=== PATIENT | male | born 1945 | race Caucasian/White ===

== ENCOUNTER → 2024-02-28 15:47 | Outpatient (CLI) | payer MEDICARE, OTHER, SELFPAY ==
--- NOTE | 2024-02-28 15:51 | DI.MRI.S_ITS ---
PROCEDURE: MR SHOULDER LT WO CON INDICATIONS: PAIN IN LEFT SHOULDER TECHNIQUE: Noncontrast oblique coronal T2 fast spin echo with fat saturation, oblique sagittal T1 spin echo and T2 fast spin echo with fat saturation, axial T1 spin echo and T2 fast spin echo with fat saturation through the shoulder. COMPARISON: None. FINDINGS: Image quality: Excellent. Rotator cuff: Low-grade articular and bursal surface partial thickness tear involving distal supraspinatus at its insertion on the humeral head extending to musculotendinous junction.. Distal infraspinatus tendinosis is seen at its insertion on the humeral head. Distal subscapularis tendinosis is also noted. No full-thickness rotator cuff tendon rupture. Sagittal images demonstrate no significant rotator cuff muscle atrophy. Bones and bursae: No bone marrow contusions or fractures. Moderate acromioclavicular joint osteoarthritic changes are seen with joint space narrowing and downward osteophyte formation depressing the musculotendinous junction of supraspinatus. Type 2 acromion, without an os acromiale. Moderate glenohumeral joint osteoarthritic changes also seen with joint space narrowing, subchondral sclerosis and marginal osteophyte formation. Small amount of subacromial subdeltoid bursal fluid is seen, no loose bodies. Capsule and soft tissues: Fraying of superior anterior glenoid labrum with T2 hyperintense signal suggestive of superior anterior labral tear. The long head of the biceps tendon demonstrates normal location and morphology. The rotator interval appears normal, without fibrosis. The coracohumeral ligament is normal in thickness. IMPRESSION: 1. Low-grade articular and bursal surface partial thickness tear involving distal supraspinatus extending to musculotendinous junction. Distal infraspinatus and subscapularis tendinosis. No full-thickness rotator cuff tendon rupture. 2. Moderate acromioclavicular joint and glenohumeral joint osteoarthritis. No fracture or dislocation. Small amount of subacromial subdeltoid bursal fluid. No loose bodies. 3. Suggestion of superior anterior left glenoid labral tear. Dictated by: Bruce Friend M.D. on 02/29/2024 at 10:50 Approved by: Bruce Friend M.D. on 02/29/2024 at 11:01
== END ==
PROVIDERS: Referring Provider Orthopaedic Surgery; Visit Provider Orthopaedic Surgery
DX: M75.112 Incomplete rotator cuff tear or rupture of left shoulder, not specified as traumatic (principal); M19.012 Primary osteoarthritis, left shoulder; M25.512 Pain in left shoulder
CPT/HCPCS: 73221

== ENCOUNTER → 2024-03-07 13:48 | Outpatient (CLI) | payer MEDICARE, OTHER, SELFPAY ==
--- NOTE | 2024-03-07 13:53 | EKG_ITS ---
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
[2024-03-07 14:43] LABS: Add Manual Diff / Slide Review NO; Basophils Absolute Auto 100 /uL (0-100); Basophils Percent Auto 0.8 % (0-2); Eosinophils Absolute Auto 100 /uL (0-450); Eosinophils Percent Auto 1.1 % (2-4); Hematocrit 45.4 % (41-53); Hemoglobin 15.5 g/dL (13.5-17.5); Lymphocytes Absolute Auto 1800 /uL (1100-4500); Mean Corpuscular HGB Conc 34.2 % (30-36); Mean Corpuscular Hemoglobin 32.5 PG (26-34); Mean Corpuscular Volume 95.2 fL (80-100); Monocytes Absolute Auto 700 /uL (0-900); Monocytes Percent Auto 7.7 % (3-14); Neutrophils Absolute Auto 6000 /uL (1500-7000); Neutrophils Percent Auto 69.4 % (50-75); Platelet Count 192 X10^3/uL (150-400); Red Blood Cell Count 4.77 X10^6/uL (4.5-5.9); Red Cell Distribution Width 13.6 % (11.6-14.8); White Blood Cell Count 8.6 X10^3/uL (4.5-11.0)
[2024-03-07 15:01] LABS: BUN Creatinine Ratio 23.4 (6-22); Blood Urea Nitrogen 26 mg/dL (9-20); Calcium 9.3 mg/dL (8.4-10.2); Carbon Dioxide 25 mmol/L (22-32); Chloride 106 mmol/L (98-107); Estimated Glomerular Filt Rate > 60 mL/min (>60); Glucose 95 mg/dL (80-110); HEMOLYSIS 25 (0-50); Potassium 4.6 mmol/L (3.4-5.1); Sodium 139 mmol/L (137-145)
[2024-03-07 15:46] LABS: Appearance Urine UA CLEAR; Bilirubin Urine UA NEGATIVE (NEGATIVE); Color Urine UA YELLOW; Glucose Urine UA NEGATIVE (Negative); Ketones Urine UA NEGATIVE (NEGATIVE); Leukocyte Esterase Urine UA TRACE (NEGATIVE); Nitrite Urine UA NEGATIVE (Negative); Occult Blood Urine UA NEGATIVE (Negative); Protein Urine UA NEGATIVE (Negative); Specific Gravity Urine UA 1.025 (1.000-1.035); Urobilinogen Urine UA 0.2 E.U./dL (0.2); pH Urine UA 5.5 (4.5-8.0)
[2024-03-07 15:55] LABS: RBC Urine None Seen (0-5/HPF); Urine Volume 10mL (spun)
[2024-03-07 15:56] LABS: Bacteria Urine Few (2-10); Culture Indicated Urine Specimen Cultured; Squamous Epithelial Cell Urine None Seen (0-5/HPF); WBC Urine 5-10/HPF (0-5/HPF)
== END ==
LOC: LAB 13:51
PROVIDERS: Referring Provider Orthopaedic Surgery; Visit Provider Orthopaedic Surgery
DX: Z01.818 Encounter for other preprocedural examination (principal); N39.0 Urinary tract infection, site not specified; Z01.812 Encounter for preprocedural laboratory examination
CPT/HCPCS: 36415; 80048; 81001; 85025; 87086; 93005; 93010

== ENCOUNTER → 2024-03-09 12:55 | Outpatient (CLI) | payer MEDICARE, OTHER, SELFPAY ==
--- NOTE | 2024-03-09 | DI.CT.S_ITS ---
PROCEDURE: CT UE LT WO CON INDICATIONS: PAIN IN LEFT SHOULDER TECHNIQUE: Noncontrast 0.75 mm thick sections acquired from the acromioclavicular joint to the inferior scapula using shoulder blueprint protocol, with coronal and sagittal reformatting. COMPARISON: None. FINDINGS: Image quality: Excellent. Bones: There is moderate acromioclavicular joint osteoarthritis with joint space narrowing, subchondral sclerosis and downward osteophyte formation depressing the musculotendinous junction of supraspinatus. Moderate to severe glenohumeral joint osteoarthritic changes are seen with significant joint space narrowing, subchondral sclerosis and inferior marginal osteophyte formation. No acute fracture or dislocation. No suspicious bony lesions. No abnormality is seen in visualized left ribs. Soft tissues: There is no full-thickness rotator cuff tendon rupture. Sagittal sequence show no significant rotator cuff muscle atrophy. No abnormal soft tissue calcifications or calcified intra-articular loose bodies. No axillary lymphadenopathy. The included left lung field is clear. IMPRESSION: 1. Study is for surgical planning. 2. Moderate acromioclavicular joint osteoarthritis and moderate to severe glenohumeral joint osteoarthritis. No shoulder fracture or dislocation. No suspicious bony lesions. 3. No full-thickness rotator cuff tendon rupture. No significant rotator cuff muscle atrophy. No significant joint effusion or calcified intra-articular loose bodies. No soft tissue mass or abnormal soft tissue calcifications. Dictated by: Bruce Friend M.D. on 03/10/2024 at 12:07 Approved by: Bruce Friend M.D. on 03/10/2024 at 12:09
== END ==
PROVIDERS: Referring Provider Orthopaedic Surgery; Visit Provider Orthopaedic Surgery
DX: M25.512 Pain in left shoulder (principal); M19.012 Primary osteoarthritis, left shoulder
CPT/HCPCS: 73200

== ENCOUNTER 2024-04-06 12:21 | Day surgery (SDC) | payer MEDICARE, OTHER, SELFPAY ==
[2024-04-05 13:31] VITALS: BMI 26.3
[2024-04-06] VITALS (14 sets, daily range): BP systolic 103–155; BP diastolic 63–102; PULSE 82–106; RESP 10–18; TEMP 36.2–36.9; O2SAT 93–98; BMI 26.3
--- NOTE | 2024-04-06 07:20 | DI.RAD.S_ITS ---
PROCEDURE: XR SHOULDER LT 1V INDICATIONS: RTSA TECHNIQUE: 2 views of the shoulder were acquired. COMPARISON: None. FINDINGS: Status post left shoulder reverse arthroplasty, in near anatomic alignment. No hardware complication. Associated soft tissue air, representing a medial postprocedure changes. Moderate degenerative changes acromioclavicular joint. IMPRESSION: Postoperative changes. No hardware complication. Dictated by: Alia Mejia M.D. on 04/06/2024 at 15:29 Approved by: Alia Mejia M.D. on 04/06/2024 at 15:31
--- NOTE | 2024-04-06 13:04 | PM.PREOP ---
Pre-operative Note Interval Note History & Physical reviewed/Exam performed by Physician: Yes Changes to H&P: No
[2024-04-06] MEDS: ACETAMINOPHEN 325 MG TABLET 975 MG PO (13:07)
[2024-04-06] MEDS: LACTATED RINGERS 1,000 ML 42 ML IV (13:08)
--- NOTE | 2024-04-06 13:09 | SUR.OPER ---
Beach chair with Schlein shoulder positioner. Lower body on padded OR bed. Head in foam padded head cradle, secured with straps. Non-operative arm secured <90 degrees abduction. Pillow under knees. Safety belt at thigh. Cloth tape over blanket over lower legs.
[2024-04-06] MEDS: CEFAZOLIN 2 GM/100 ML PREMIX 100 ML IV (13:32)
[2024-04-06] MEDS: TRANEXAMIC ACID 1,000 MG VIAL 1000 MG INJ (13:54)
--- NOTE | 2024-04-06 14:51 | PM.OP.1 ---
Operative Date/Time/Diagnoses Date of procedure: 04/06/24 Time of procedure: 14:51 Pre-op diagnosis: Left glenohumeral arthritis Post-op diagnosis: same Procedure & Clinicians Procedure: Left reverse total shoulder arthroplasty Same procedure as scheduled: Yes Indications: Indications: This is a 78-year-old male who has left glenohumeral arthritis. Symptoms have been present for years, insidious onset. Patient has failed a reasonable attempt at conservative therapy. After extensive discussion in clinic, they wished to go forward with surgery. Risks and benefits were described including the risk of infection, bleeding, damage to internal structures including nerves. We also discussed the risk of failure of surgery and the need for revision surgery as well as the risk of anesthesia. The patient expressed understanding with these risks and wished to go forward with surgery. Surgeon: Jacob Liu Child Guidance Counselor: Walt Perez Anesthesia Type: General Operative Notes Findings: Findings: Osteoarthritis of the glenoid and humeral head with intact rotator cuff as noted on preoperative imaging and under direct visualization Closure Type: primary Specimen(s): none sent Prosthetic devices, grafts, tissues, transplants, or devices: Tornier implants Base plate: 29 mm, full wedge Glenosphere: 30 mm Stem: Perform 3+ Poly: 0 retentive Estimated Blood Loss (mL): 100 Blood products transfused: none Procedure in detail: Patient was seen in the preoperative holding unit. The correct left shoulder was identified and marked with my initials. Again we discussed the risks and benefits of surgery and they wished to go forward with surgery. The patient was brought back to the operating room and placed supine on the operating table. Smooth endotracheal intubation was performed by anesthesia. All prominences were padded and they were placed into the beach chair position. Intravenous antibiotics were given. The left shoulder was then prepped with the standard sterile preparation and draping. A time-out was then performed in my initials were again identified on the correct shoulder. 1 g of IV tranexamic acid was given. A standard deltopectoral incision was made. Skin flaps were made. The cephalic vein was identified and retracted laterally. This was protected throughout the remainder of the case. Sharp dissection was made along the deltoid, subacromial and subcoracoid space to release adhesions. The conjoined tendon was identified and the axillary nerve was palpated and continuous using the tug test. It was protected throughout the remainder of the case. A brown retractor was placed underneath the deltoid muscle and a darach retractor underneath the conjoint tendon. The subscapularis muscle was ntoed to be intact. The anterior circumflex artery and associated veins on the lower border of the subscapularis were identified and tied off using 0-Vicryl. The biceps tendon was identified in the bicipital groove. This was released from its sheath, and taken from its origin on the glenoid and tied into the pectoralis tendon for a solid tenodesis. We then began a subscapularis peel. The subscapularis was tagged with an Ethibond suture. A 360 degree circumferential release of the subscapularis was performed with protection of the axillary nerve. The coracohumeral ligament was released at the base of the coracoid. The shoulder was then dislocated. Osteophytes were removed using combination of rongeur and osteotome. The rotator cuff was noted to be insufficient. An intramedullary guide was used set at version of 20?. Using an oscillating saw a conservative humeral head cut was made. Impaction reamers were reamed up to a size 3 stem with a built-in angle 135?. A neck protector was placed. Attention was then turned to the glenoid. After retracting the humeral head posteriorly a circumferential release was performed of the capsule with protection of the axillary nerve. The labrum was then released starting at the biceps anchor and going around the rim a small amount of triceps was released from the inferior glenoid. A center guide pin was then placed using the guide, followed by Reamer. After adequate cartilage was removed the boss was reamed and the centeral hole was drilled and measured. The base plate was then implanted and screwed into place. The peripheral screws were then sequentially drilled, measured, and placed. A 39 glenosphere was then selected and screwed into place onto the base plate. Turning back to the humerus, the humeral head was delivered and trialed with a 0 retentive. The arm was taken through range of motion and this was felt to be stable. The trial was then removed and a dilute Betadine wash was then performed with 1 L of sterile saline. Before placing the final implant, drill holes were made in the bicipital groove for the subscapularis repair, and sutures were passed through the drill holes. The final stem was then impacted into the humerus. The shoulder was then reduced and again brought through range of motion and was felt to be stable. The subscapularis was then repaired using a modified racking hitch with nice loupes. The skin was closed with 2-0 vicryl and 3-0 Monocryl followed by Aquacel dressing. Patient was awoken from anesthesia and brought back to the postoperative recovery unit without issue. They were placed into a sling. Assisting participation: This operation could not have been safely performed (without compromising the technical results or length of the procedure) without the assistance of a skilled operating room surgical technologist. The operating room surgical technologist was medically necessary for proper positioning, retraction and manipulation of instruments, proper exposure, graft prep, and manipulation of tissue. Complications: none Post-operative Condition: stable Disposition: PACU Plan for aftercare: Postoperative instructions: Sling to remain on for 6 weeks. No external rotation past neutral for 6 weeks. Okay for the sling to come off for shower. Okay to shower over the Aquacel dressing. If any water gets underneath the dressing, remove the dressing. First postoperative visit in 2 weeks.
--- NOTE | 2024-04-06 15:08 | SUR.OPER ---
0.25% Bupivicaine with Epi local injection at end of case 20ml
[2024-04-06] MEDS: ONDANSETRON 4 MG/2 ML INJ IV (15:22)
[2024-04-06] MEDS: fentaNYL 100 MCG/2 ML INJ IV ×2 (15:22→15:34)
[2024-04-06] MEDS: hydrOXYzine 50 MG/ML INJ 25 MG IM (15:24)
[2024-04-06] MEDS: OXYCODONE IR 5 MG TABLET PO (15:26)
[2024-04-06] MEDS: HYDROMORPHONE 1 MG INJ IV ×4 (15:30→16:09)
[2024-04-06] MEDS: KETOROLAC 30 MG/ML VIAL 15 MG IV (16:01)
== END 2024-04-06 17:22 | disposition home or self-care (01) ==
PROVIDERS: Referring Provider Orthopaedic Surgery; Visit Provider Orthopaedic Surgery
PROC: (CPT 23472; principal; 2024-04-06 14:15)
DX: M19.012 Primary osteoarthritis, left shoulder (principal); G89.18 Other acute postprocedural pain; M25.712 Osteophyte, left shoulder
CPT/HCPCS: 23472; 64415; 73020; C1776; J0330; J0690; J1170; J1885; J2405; J2704; J3010; J3410

== ENCOUNTER → 2025-02-02 10:35 | Outpatient (CLI) | payer MEDICARE, OTHER, SELFPAY | PROVIDERS: Visit Provider Nurse Practitioner Family | DX: R30.0 Dysuria (principal) | CPT/HCPCS: 87086 ==

== ENCOUNTER 2025-02-02 11:17 | Emergency (ER) | payer MEDICARE, OTHER, SELFPAY ==
[2025-02-02] VITALS (10 sets, daily range): BP systolic 111–139; BP diastolic 54–67; PULSE 78–101; RESP 16–23; TEMP 36.8–37.2; O2SAT 94–100; BMI 26.6
[2025-02-02 11:52] LABS: Add Manual Diff / Slide Review NO; Hematocrit 43.1 % (41-53); Hemoglobin 14.7 g/dL (13.5-17.5); Lymphocytes Absolute Auto 600 /uL (1100-4500); Mean Corpuscular HGB Conc 34.1 % (30-36); Mean Corpuscular Hemoglobin 32.5 PG (26-34); Mean Corpuscular Volume 95.4 fL (80-100); Platelet Count 179 X10^3/uL (150-400)
[2025-02-02 12:05] LABS: Alanine Aminotransferase 24 IU/L (<50); Albumin 4.1 g/dL (3.5-5.0); Albumin Globulin Ratio 1.5 (1.0-2.8); Alkaline Phosphatase 71 U/L (38-126); Blood Urea Nitrogen 24 mg/dL (9-20); Calcium 9.1 mg/dL (8.4-10.2); Carbon Dioxide 23 mmol/L (22-32); Chloride 108 mmol/L (98-107); Estimated Glomerular Filt Rate > 60 mL/min (>60); Globulin 2.7 g/dL (1.7-4.1); Glucose 146 mg/dL (70-99); HEMOLYSIS 23 (0-50); Lipase 54 U/L (23-300); Potassium 4.7 mmol/L (3.4-5.1); Sodium 138 mmol/L (137-145); Total Protein 6.8 g/dL (6.3-8.2)
[2025-02-02 12:37] LABS: Appearance Urine UA CLEAR; Bilirubin Urine UA NEGATIVE (NEGATIVE); Color Urine UA YELLOW; Glucose Urine UA NEGATIVE (Negative); Ketones Urine UA NEGATIVE (NEGATIVE); Leukocyte Esterase Urine UA NEGATIVE (NEGATIVE); Nitrite Urine UA NEGATIVE (Negative); Occult Blood Urine UA NEGATIVE (Negative); Protein Urine UA NEGATIVE (Negative); Specific Gravity Urine UA <=1.005 (1.000-1.035); Urobilinogen Urine UA 0.2 E.U./dL (0.2); pH Urine UA 6.5 (4.5-8.0)
[2025-02-02 12:48] LABS: Culture Indicated Urine Cult Not Indicated
--- NOTE | 2025-02-02 13:51 | ED_ITS ---
HPI - Abdominal Pain General Chief Complaint: Abdominal Pain Stated Complaint: stomach pain lower right mostly Time Seen by Provider: 02/02/25 13:51 Source: patient, RN notes reviewed and old records reviewed Mode of arrival: Ambulatory Limitations: no limitations History of Present Illness HPI narrative: 79-year-old male on tamsulosin is only daily medication presents with complaint of abdominal pain states it seems to be mostly right-sided he describes it little bit more as lower abdominal but states it did hurt when they pushed on the upper right side. Pretty states it sort of hurts all over. He states no fevers. Did have some chills earlier. No nausea or vomiting. He states food does not seem to make it worse or better. He does not appreciate any other exacerbating or alleviating symptoms other than when the nurse pushed on it. Denies any back or flank pain. Denies any diarrhea or constipation. States he was had normal well formed stools. No black or bloody stools. Notes some dysuria, mild frequency, no incontinence or urgency. No testicular pain. Patient has not had similar symptoms in the past. States he takes tamsulosin in his only daily medication. Has had prior appendectomy remotely. Patient has had prior shoulder surgery. No known drug allergies. No tobacco, 1 alcoholic drink daily, no recreational drugs. Related Data Home Medications ?Medication ?Instructions ?Recorded ?Confirmed tamsulosin 0.4 mg capsule 0.4 mg PO QAM 04/05/2404/05 terbinafine HCl 250 mg tablet 250 mg PO QAM 02/02/25 0 02/02/25 triamcinolone acetonide 0.1 % applic topical 02/02/25 02/02/25 topical cream Previous Rx's ?Medication ?Instructions ?Recorded amoxicillin 875 mg-potassium 1 tab PO BID 10 days #20 tabs 02/02/25 clavulanate 125 mg tablet Allergies Allergy/AdvReac Type Severity Reaction Status Date / Time No Known Drug Allergies Allergy Verified 02/02/25 11:35 Review of Systems Review of Systems ROS Unobtainable: All systems reviewed & are unremarkable except as noted in HPI and below Patient History Surgical History History of shoulder surgery History of tonsillectomy Social History household members: spouse Smoking Status: Never smoker alcohol intake: current Smoking Status: Never smoker alcohol intake frequency: a few times a week Alcohol type: wine Exam Narrative Exam Narrative: GENERAL: Alert and oriented x three, mild distress HEENT: Head normocephalic, atraumatic, EOMI, pupils reactive, face symmetric, moist mucous membranes NECK: Supple, full range of motion CARDIOVASCULAR: Regular rate and rhythm without murmurs, rubs or gallops. RESPIRATORY: Breath sounds equal bilaterally, no wheezes rales or rhonchi. ABDOMEN: Soft, patient is tender in his right upper quadrant but also somewhat in the right lower quadrant he was also tender in the left lower quadrant. Normoactive bowel sounds all 4 quadrants. No guarding or rebound, rigidity, no mass, pulsatile mass or bruit. : No CVA tenderness EXTREMITIES: Normal range of motion, no clubbing or edema. Neurovascularly intact NEUROLOGICAL: Cranial nerves II through XII grossly intact. Moving all extremities SKIN: Warm, dry, no petechiae, no rashes or lesions. Initial Vital Signs Initial Vital Signs: Vital Signs Pulse Rate 96 H 02/02/25 11:30 Blood Pressure 135/67 02/02/25 11:30 Pulse Oximetry 98 02/02/25 11:30 Course Orders Ordered: ED Orders 02/02/25 11:41 Complete Blood Count AUTO DIFF Stat Comprehensive Metabolic Panel Stat Lipase Stat 02/02/25 11:56 Urinalysis and Microscopic Stat 02/02/25 14:01 CT abdomen pelvis w con Stat Discontinued Medications Amoxicillin/Clavulanate Potassium (Amoxicillin/Clav 875/125 Mg) 1 tab PO NOW ONE Stop: 02/02/25 15:17 Last Admin: 02/02/25 15:23 Dose: 1 tab Documented By: DOROTHEA Ondansetron HCl (Ondansetron 4 Mg/2 Ml Inj) 4 mg IV NOW PRN PRN Reason: Nausea And Vomiting Ondansetron HCl (Ondansetron 4 Mg Odt) 4 mg PO NOW PRN PRN Reason: Nausea And Vomiting Vital Signs Vital signs: Vital Signs - 8 hr 02/02/25 11:30 02/02/25 11:30 02/02/25 11:34 Temperature 98.2 F Pulse Rate 96 H 90 Respiratory Rate 16 Blood Pressure 135/67 135/67 Pulse Oximetry 98 98 Oxygen Delivery Method Room Air 02/02/25 12:03 02/02/25 12:07 02/02/25 12:07 Temperature Pulse Rate 101 H 90 Respiratory Rate Blood Pressure 132/61 Pulse Oximetry 100 98 Oxygen Delivery Method 02/02/25 12:30 02/02/25 12:30 02/02/25 13:00 Temperature Pulse Rate 86 86 Respiratory Rate Blood Pressure 118/57 L Pulse Oximetry 95 95 Oxygen Delivery Method Room Air 02/02/25 13:30 02/02/25 13:30 02/02/25 13:31 Temperature 98.9 F Pulse Rate 83 Respiratory Rate 22 18 Blood Pressure 111/54 L Pulse Oximetry 96 Oxygen Delivery Method 02/02/25 14:00 02/02/25 14:00 02/02/25 15:18 Temperature Pulse Rate 87 78 Respiratory Rate 23 Blood Pressure 139/63 139/63 Pulse Oximetry 96 94 Oxygen Delivery Method Room Air Room Air MDM - Abdominal Pain Lab Data 02/02/25 11:41 02/02/25 11:41 Labs: Lab Results 02/02/25 02/02/25 Range/Units 11:41 11:56 WBC 11.3 H (4.5-11.0) X10^3/uL RBC 4.52 (4.5-5.9) X10^6/uL Hgb 14.7 (13.5-17.5) g/dL Hct 43.1 (41-53) % MCV 95.4 (80-100) fL MCH 32.5 (26-34) PG MCHC 34.1 (30-36) % RDW 14.1 (11.6-14.8) % Plt Count 179 (150-400) X10^3/uL Neut % (Auto) 85.6 H (50-75) % Lymph % (Auto) 5.4 L (25-40) % [place] % (Auto) 8.6 (3-14) % Eos % (Auto) 0.0 L (2-4) % Baso % (Auto) 0.4 (0-2) % Neut # (Auto) 9600 H (4272-4874) /uL Lymph # (Auto) 600 L (3756-5100) /uL [place] # (Auto) 1000 H (0-900) /uL Eos # (Auto) 0 (0-450) /uL Baso # (Auto) 0 (0-100) /uL Sodium 138 (137-145) mmol/L Potassium 4.7 (3.4-5.1) mmol/L Chloride 108 H (98-107) mmol/L Carbon Dioxide 23 (22-32) mmol/L BUN 24 H (9-20) mg/dL Creatinine 1.06 (0.66-1.25) mg/dL Estimated GFR > 60 (>60) mL/min BUN/Creatinine Ratio 22.6 H (6-22) Glucose 146 H (70-99) mg/dL Calcium 9.1 (8.4-10.2) mg/dL Total Bilirubin 1.0 (0.2-1.3) mg/dL AST 32 (17-59) IU/L ALT 24 (<50) IU/L Alkaline Phosphatase 71 (38-126) U/L Total Protein 6.8 (6.3-8.2) g/dL Albumin 4.1 (3.5-5.0) g/dL Globulin 2.7 (1.7-4.1) g/dL Albumin/Globulin Ratio 1.5 (1.0-2.8) Lipase 54 (23-300) U/L Urine Color Yellow Urine Appearance Clear Urine pH 6.5 (4.5-8.0) Ur Specific [place] <=1.005 (1.000-1.035) Urine Protein Negative (Negative) Urine Glucose (UA) Negative (Negative) g/dL Urine Ketones Negative (NEGATIVE) Urine Occult Blood Negative (Negative) Urine Nitrate Negative (Negative) Urine Bilirubin Negative (NEGATIVE) Urine Urobilinogen 0.2 (0.2) E.U./dL Ur Leukocyte Esterase Negative (NEGATIVE) Urine RBC None seen (0-5/HPF) Urine WBC None seen (0-5/HPF) Ur Squamous Epith Cells 0-1 /hpf (0-5/HPF) Urine Bacteria None seen (None) Ur Culture Indicated? Cult not indicated Vol Urine Centrifuged 10ml (spun) MDM Narrative Medical decision making narrative: 79-year-old male with complaint of abdominal pain he describes a little bit more is right-sided but also in the left, on exam he was tender left lower quadrant as well as right lower and right upper. Has had an appendectomy still has a gallbladder. No flank pain. Labs do not show a clear source, urinalysis does not show any signs consistent with infection or bleeding. Patient states it has been about 24 hours if symptoms other than palpation nothing seems to make it better or worse. No rash or skin changes appreciated on exam. We will obtain CT abdomen pelvis if this does not show a clear source we will obtain right upper quadrant ultrasound. Labs show white count 11.3 hemoglobin of 14.7 platelets of 179, chemistries show chloride of 108 BUN 24 electrolytes are otherwise appropriate creatinine is 1.06 glucose is 146 LFTs are negative normal lipase of 54. UA shows 1 squamous otherwise negative. Imaging sigmoid diverticulitis with moderate inflammation no drainable abscess wall thickening with the surrounding sigmoid colon with luminal narrowing probably chronic diverticular disease however colonoscopy correlation recommended following clinical treatment exclude underlying lesion. Gallbladder is unremarkable liver is unremarkable pancreas spleen adrenal glands and kidneys show no acute changes. No evidence of bowel obstruction. Discussed with the patient we will start oral antibiotics Discharge Plan Departure Patient Disposition: Home Clinical Impression: Diverticulitis Instructions: Diverticulitis Activity Restrictions/Additional Instructions: Follow up for recheck, it is also recommended you have colonoscopy if you have not had one recently. Your imaging does show sigmoid diverticulitis, there was no abscess or fluid collection. Take oral antibiotics until completed. Prescription sent to [facility] in [place]. Please return for fevers, worsening abdominal back or flank pain, persistent vomiting, black or bloody stools, lightheadedness or passing out or other new or concerning changes Prescriptions: New amoxicillin-pot clavulanate 875-125 mg tablet 1 tab PO BID 10 Days Qty: 20 0RF No Action triamcinolone acetonide 0.1 % cream topical terbinafine HCl 250 mg tablet 250 mg PO QAM tamsulosin 0.4 mg capsule 0.4 mg PO QAM Referrals: Miscellaneous,Doctor, [Primary Care Provider, Medical] Stand Alone Forms: Patient Portal/API
--- NOTE | 2025-02-02 14:01 | DI.CT.S_ITS ---
PROCEDURE: CT ABDOMEN PELVIS W CON INDICATIONS: abd [id number], Tender RUQ,RLQ, LLQ, hx appendectomy TECHNIQUE: After the administration of intravenous contrast, axial sections acquired from the lung bases to the pubic symphysis. Coronal and sagittal reformats were performed. For radiation dose reduction, the following was used: automated exposure control, adjustment of mA and/or kV according to patient size. COMPARISON: None. FINDINGS: Image quality: Diagnostic Lower chest: Bibasal atelectasis and scarring. Normal heart size. Small hiatal hernia. Liver: Unremarkable Gallbladder and biliary system: Unremarkable, nondilated Pancreas: No ductal dilation Spleen: Nonenlarged Adrenals: No discrete nodules Kidneys: No solid renal mass or hydronephrosis. Vessels and lymph nodes: The main portal vein appears patent. No abdominal aortic aneurysm. No enlarged lymph nodes by size criteria. Bowel and peritoneum: No evidence of small bowel obstruction. No drainable abscess or ascites. Focal wall thickening and luminal narrowing is seen in the sigmoid colon. Moderate focal inflammation is seen around in inferiorly projecting diverticulum. Diverticulosis elsewhere throughout the colon. Body wall: Unremarkable Pelvis: Under distended urinary bladder. Heterogeneous prostate enhancement and prostatomegaly, not well assessed on this study. Bones: No aggressive appearing osseous abnormality degenerative changes. Sacroiliac ankylosis. IMPRESSION: Sigmoid diverticulitis with moderate inflammation. No drainable abscess. Wall thickening thickening of the surrounding sigmoid colon with luminal narrowing, probably chronic diverticular disease, however colonoscopy correlation is recommended following clinical treatment to exclude underlying lesion. Other findings above. Dictated by: Ramos Awad M.D. on 02/02/2025 at 13:42 Approved by: Ramos Awad M.D. on 02/02/2025 at 13:45
[2025-02-02] MEDS: AMOXICILLIN/CLAV 875/125 MG 1 TAB PO (15:23)
== END 2025-02-02 15:30 | disposition home or self-care (01) ==
PROVIDERS: Emergency Provider Emergency Medicine
DX: K57.92 Diverticulitis of intestine, part unspecified, without perforation or abscess without bleeding (principal); R10.9 Unspecified abdominal pain
CPT/HCPCS: 36415; 74177; 80053; 81001; 81002; 83690; 85025; 87086; 99284; Q9967